=== PATIENT | male | born 1965 | race Caucasian/White ===

== ENCOUNTER 2022-10-24 00:44 | Emergency (ER) | payer BC, OTHER ==
[2022-10-24] MEDS ORDERED: Acetaminophen/HYDROcodone 325-10 MG Tab PO ONE (00:45)
[2022-10-24] MEDS ORDERED: methylPREDNISolone Sodium Succinate 125 MG/2 ML SDV IM ONE (03:27)
[2022-10-24] MEDS ORDERED: Acetaminophen/HYDROcodone 325-10 MG Tab ONE (03:35)
== END 2022-10-24 03:45 | disposition home or self-care (01) ==
LOC: DL.ED 00:44
DX: G56.21 Lesion of ulnar nerve, right upper limb (principal); I10 Essential (primary) hypertension; E66.9 Obesity, unspecified; Z68.41 Body mass index [BMI] 40.0-44.9, adult; F17.210 Nicotine dependence, cigarettes, uncomplicated
CPT/HCPCS: 96372; 99283; A9270; J2930

== ENCOUNTER 2025-03-07 13:12 | Emergency (ER) | payer MEDICAID, OTHER ==
[2025-03-07 13:55] LABS: HEMATOCRIT 42.5 % (40.0-54.0); MEAN CORPUSCULAR HEMOGLOBIN 27.7 pg (27.0-34.0); MEAN CORPUSCULAR HGB CONC 32.9 g/dL (33.0-35.0); MEAN CORPUSCULAR VOLUME 84.2 fL (80-100); PLATELET COUNT,PLT 247 10^3/uL (150-450); RED BLOOD CELL COUNT 5.05 10^6/uL (4.6-6.2); WHITE BLOOD CELL COUNT,WBC 11.5 10^3/uL (5.0-10.0)
[2025-03-07 14:00] LABS: ALBUMIN 3.3 g/dL (3.4-5.0); ANION GAP 13.9 mEq/L (7-13); BILIRUBIN TOTAL 0.5 mg/dL (0.2-1.0); BUN/CREATININE RATIO 14.2 (No establ ref range); CALCIUM 9.3 mg/dL (8.5-10.1); CREATININE 1.55 mg/dL (0.70-1.30); EST CRCL DRUG DOSING (CG) 53.98 mL/min; POTASSIUM,K 3.9 mmol/L (3.5-5.1)
[2025-03-07 14:02] LABS: A/G RATIO 0.89; INR 0.9 (0.9-1.2); PROTHROMBIN TIME 9.6 SEC (9.0-12.0); PTT,PARTIAL THROMBOPLSTIN TIME 26.3 SEC (22.0-34.0)
[2025-03-07 14:03] LABS: LACTIC ACID 1.5 mmol/L (0.4-2.0)
[2025-03-07 14:22] LABS: LYMPHOCYTES PERCENT MAN 4 % (20-50); MONOCYTES PERCENT MAN 3 % (2-8); SEG NEUTROPHILS PERCENT MAN 93 % (42-75)
[2025-03-07] MEDS: Sodium Chloride 0.9% 1,000 ML IV SCH (14:44)
[2025-03-07 15:00] LABS: APPEARANCE,URINE CLEAR (CLEAR); BILIRUBIN,URINE NEGATIVE (NEGATIVE); COLOR,URINE YELLOW (YELLOW); GLUCOSE,URINE 500 (NEGATIVE); KETONES,URINE NEGATIVE (NEGATIVE); LEUKOCYTE ESTERASE,URINE NEGATIVE (NEGATIVE); NITRITE,URINE NEGATIVE (NEGATIVE); OCCULT BLOOD,URINE NEGATIVE (NEGATIVE); PROTEIN,URINE NEGATIVE (NEGATIVE); UROBILINOGEN,URINE 0.2 mg/dL (0.2-1.0)
[2025-03-07] MEDS: Iopamidol 612 MG/ML 100 ML Bottle IVPUSH ONE (15:34)
== END 2025-03-07 16:49 | disposition home or self-care (01) ==
LOC: DL.ED 13:12
DX: R33.9 Retention of urine, unspecified (principal); I10 Essential (primary) hypertension; E78.00 Pure hypercholesterolemia, unspecified; E11.9 Type 2 diabetes mellitus without complications; F17.210 Nicotine dependence, cigarettes, uncomplicated
CPT/HCPCS: 36415; 51702; 51798; 71260; 74177; 80053; 81003; 82272; 83605; 85025; 85610; 85730; 86850; 86900; 86901; 96360; 96361; 99284-25; J7030; Q9967